=== PATIENT | male | born 1955 | race Caucasian/White ===

== ENCOUNTER 2018-02-06 07:36 | Day surgery (SDC) | payer BC ==
[2018-02-06] MEDS: Lactated Ringers 1,000 ML IV SCH (08:31)
[2018-02-06] MEDS ORDERED: fentaNYL 100 MCG/2 ML SDV ONE (09:03)
[2018-02-06] MEDS ORDERED: Propofol 200 MG/20 ML SDV ONE ×2 (09:03→10:52)
--- NOTE | 2018-02-06 17:52 | OR ---
PREOPERATIVE DIAGNOSIS: Screening colonoscopy. POSTOPERATIVE DIAGNOSIS: Colonic polyps x3 removed. PROCEDURE PROPOSED: Total flexible colonoscopy. PROCEDURE DONE: Total flexible colonoscopy with polypectomy x3. INDICATIONS: This is a 62-year-old gentleman who comes in for his first colonoscopic exam for screening purposes. He denies any symptomatology and has a negative family history for colon cancer. DESCRIPTION OF PROCEDURE: The patient brought to the endoscopy suite, placed in left lateral decubitus position. He was sedated per [employer] with propofol. The flexible video colonoscope was then passed transanally and under visualization advanced to the cecum. Examination revealed a normal cecal and ascending colon area. In the hepatic flexure area, there was a tubulovillous type polyp, somewhat flattish, that was removed by hot snare technique and retrieved with the snare. I then held onto the polyp as I brought the scope through the transverse colon which was unremarkable. The descending colon was normal, and then at 30 cm, a couple of polyps were noted. I brought the [address] out. Brought the scope back in and hot snared a second polyp and brought that one out with suction, went back in, and again at 30 cm, the third polyp was removed by hot snare technique and retrieved with suction into the polyp trap. The remainder of the exam was normal as the lower 30 cm appeared normal. There were no signs of any diverticulosis or colitis or other abnormalities, and the scope was then withdrawn. The patient tolerated the procedure well. FINAL IMPRESSION: Colonic polyps x3 removed. PLAN: He will be sent a letter with the pathology report. He will be recommended to have colonoscopies every 5 years hereafter. SCM: 02/06/2018 11:20:39 MODL: 02/06/2018 17:47:38 /[id number]
== END 2018-02-06 12:53 | disposition home or self-care (01) ==
LOC: VM.SDS 07:36
PROVIDERS: ATTEND Surgery
DX: Z12.11 Encounter for screening for malignant neoplasm of colon (principal); D12.3 Benign neoplasm of transverse colon; D12.5 Benign neoplasm of sigmoid colon; I10 Essential (primary) hypertension; G47.33 Obstructive sleep apnea (adult) (pediatric); E78.5 Hyperlipidemia, unspecified; E66.9 Obesity, unspecified; Z68.41 Body mass index [BMI] 40.0-44.9, adult; B36.0 Pityriasis versicolor; Z79.2 Long term (current) use of antibiotics; Z79.899 Other long term (current) drug therapy
CPT/HCPCS: J2704; J3010; J7120

== ENCOUNTER 2023-05-26 06:53 | Day surgery (SDC) | payer BC ==
[2023-05-26] MEDS ORDERED: Lactated Ringers 1,000 ML IV SCH (07:00)
[2023-05-26] MEDS ORDERED: fentaNYL 100 MCG/2 ML SDV ONE (08:42)
[2023-05-26] MEDS ORDERED: Midazolam 1 MG/ML 2 ML SDV ONE (08:42)
[2023-05-26] MEDS ORDERED: Propofol 200 MG/20 ML SDV ONE (08:42)
== END 2023-05-26 10:22 | disposition home or self-care (01) ==
LOC: VM.SDS 06:53
PROVIDERS: ATTEND Student in an Organized Health Care Education/Training Program
DX: Z12.11 Encounter for screening for malignant neoplasm of colon (principal); D12.5 Benign neoplasm of sigmoid colon; D12.0 Benign neoplasm of cecum; D12.3 Benign neoplasm of transverse colon; R73.01 Impaired fasting glucose; I10 Essential (primary) hypertension; G47.33 Obstructive sleep apnea (adult) (pediatric); E66.01 Morbid (severe) obesity due to excess calories; Z68.41 Body mass index [BMI] 40.0-44.9, adult; Z90.49 Acquired absence of other specified parts of digestive tract; Z79.899 Other long term (current) drug therapy; Z98.890 Other specified postprocedural states
CPT/HCPCS: 00811; J2250; J2704; J3010; J7120